=== PATIENT | female | born 1945 | race African-American/Black ===

== ENCOUNTER → 2017-09-18 | Outpatient (CLI) | payer MEDICARE, OTHER ==
[~2017-09-18] MED LIST: ADVAIR 250/28 DISKU1 IH; ASPERCREME10% TP; BENADRYL25 M2 PO; CLARITIN10 MG PO; COREG25 MG PO; HUMULIN 70/3100 U/ML SC; HYDROCHLOR50 MG PO; HYGROTON25 MG PO; JANUVIA 100MG100 MG PO; NOVOLOG100 U/ML SC; NOVOLOGMIX70/30 SQ; OMEGA 31000 MG PO; PLENDIL10 MG PO; PROAIR HFA0.09 MG/AC IH; RANITIDINE300 MG PO; TOPROL XL50 MG PO; TYLENOL 325MG325 MG PO; ZANTAC 150MG T150 MG PO; ZOCOR 40MG40 MG PO; ZOCOR40 MG PO
== END ==
LOC: COL.RAD 09:19
DX: N18.2 Chronic kidney disease, stage 2 (mild) (principal)